=== PATIENT | male | born 1995 | race Caucasian/White ===

== ENCOUNTER 2023-02-10 14:40 | Emergency (ER) | payer OTHER, SELFPAY ==
[2023-02-10] VITALS (28 sets, daily range): BP systolic 168–207; BP diastolic 109–146; PULSE 87–104; RESP 18; TEMP 36.6; O2SAT 94–97; BMI 33.0
--- NOTE | 2023-02-10 14:59 | ED.CHESTPAIN ---
HPI - Chest Pain General Time Seen by Provider: 14:59 Date Seen: 02/10/23 Chief Complaint: Chest Pain Stated Complaint: Tightness in Chest Dizzy Numb Arms Time Seen by Provider: 02/10/23 14:41 Source: patient and RN notes reviewed Mode of arrival: ambulatory Limitations: no limitations History of Present Illness HPI narrative: Patient is a 27-year-old male who had an episode at work where he started feeling dizzy. He felt like his fingertips were numb and tingly. He felt a heaviness in his chest. He states his arms started to go numb. He felt like he was getting tunnel vision like he might pass out. This has subsided. It is reviewed with him that his blood pressure is certainly elevated. He is not been anywhere that he would have had his blood pressure checked recently. He does not have any headache, no visual changes outside of feeling like his vision was closing or getting tunnel vision. There is none of that now. He is not short of breath, no chest tightness now. No palpitations. Denies any illicit drug use. States he does smoke when he drinks but that is all. He does admit to drinking about 3 to 4 times a week and did drink last night. Had multiple drinks last night. Absolutely does not do anything like cocaine, methamphetamine. Has no chronic health history but has not been into a doctor. MD complaint: chest discomfort Timing of current episode: episodic and now resolved Prior episodes: No Related Data Previous Rx's Medication Instructions Recorded hydrochlorothiazide 12.5 mg capsule 12.5 mg PO DAILY #30 caps 02/10/23 lisinopril 10 mg tablet 10 mg PO DAILY #30 tabs 02/10/23 Allergies Allergy/AdvReac Type Severity Reaction Status Date / Time morphine Allergy Mild Verified 02/10/23 14:51 Review of Systems Status of ROS Reports: 10 or more systems reviewed and unremarkable except as noted in History and below PFSH PFSH Social History Smoking Status: Current some day smoker What tobacco products do you use: cigarettes Do you use any of these nicotine containing products: None Second hand tobacco smoke exposure: No How often do you have a drink containing alcohol: 2-3 times a week How many standard drinks containing alcohol do you have on a typical day: 3 or 4 How often do you have six or more drinks on one occasion: Never AUDIT-C Alcohol total score: 4 Non-prescribed substance use: marijuana (any form) Non-prescribed substance use details: smokes daily service: No Exam Const Vital Signs, click to edit/add: Vital Signs - 24 hr 02/10/23 14:45 02/10/23 15:05 02/10/23 14:57 Temperature 98 F Pulse Rate 92 Pulse Rate [Pulse Oximeter] 104 H Respiratory Rate 18 Blood Pressure Blood Pressure [Left Upper Arm] 200/139 H Pulse Oximetry 96 96 95 Oxygen Delivery Method Room Air 02/10/23 15:00 02/10/23 15:03 02/10/23 15:15 Temperature Pulse Rate 94 94 91 Pulse Rate [Pulse Oximeter] Respiratory Rate Blood Pressure 207/135 H Blood Pressure [Left Upper Arm] Pulse Oximetry 96 97 97 Oxygen Delivery Method 02/10/23 15:30 02/10/23 15:33 02/10/23 15:45 Temperature Pulse Rate 94 91 96 Pulse Rate [Pulse Oximeter] Respiratory Rate Blood Pressure 198/146 H Blood Pressure [Left Upper Arm] Pulse Oximetry 96 96 95 Oxygen Delivery Method 02/10/23 16:00 02/10/23 16:02 02/10/23 16:15 Temperature Pulse Rate 95 97 95 Pulse Rate [Pulse Oximeter] Respiratory Rate Blood Pressure 179/143 H Blood Pressure [Left Upper Arm] Pulse Oximetry 96 95 97 Oxygen Delivery Method 02/10/23 16:17 02/10/23 16:23 02/10/23 16:28 Temperature Pulse Rate 91 93 88 Pulse Rate [Pulse Oximeter] Respiratory Rate Blood Pressure 188/124 H 179/115 H 171/115 H Blood Pressure [Left Upper Arm] Pulse Oximetry 96 96 95 Oxygen Delivery Method 02/10/23 16:30 02/10/23 16:32 Temperature Pulse Rate 92 95 Pulse Rate [Pulse Oximeter] Respiratory Rate Blood Pressure 175/109 H Blood Pressure [Left Upper Arm] Pulse Oximetry 95 96 Oxygen Delivery Method Documenting provider has reviewed patient's vital signs: yes Common normals: no apparent distress, oriented x3, no limitations, healthy appearing, alert and well nourished General appearance: cooperative, comfortable, well kempt and well developed Nutritional appearance: obese HENMT Common normals: normocephalic, head/scalp atraumatic, hearing grossly normal bilaterally, external ears normal, external nose normal, nasal mucous membranes and turbinates normal and moist oral mucous membranes Head and scalp: normocephalic and atraumatic Nose: external nose normal and nasal mucous membranes and turbinates normal External ear: external ears normal Eye Common normals: PERRL, EOMs intact bilaterally, conjunctivae normal and no scleral icterus Conjunctiva: conjunctiva(e) normal Pupil: PERRL Neck & C-Spine Common normals: full ROM, no lymphadenopathy, supple, no meningeal signs, no JVD and thyroid normal Thyroid: thyroid normal Chest Common normals: inspection of chest normal and palpation of chest normal Resp Common normals: normal respiratory effort, no retractions, no use of accessory muscles and clear to auscultation bilaterally Auscultation: clear to auscultation bilaterally Cardio Common normals: no JVD, regular rhythm, S1 normal heart sound, S2 normal heart sound, no gallops, no clicks, no murmurs and no rub Rate: tachycardic Rhythm: regular rhythm Heart sounds: S1 normal and S2 normal GI Common normals: Normal to inspection, nondistended, normoactive bowel sounds present, soft to palpation, non-tender, no hepatosplenomegaly and no masses Palpation: soft and no hepatosplenomegaly Extremity Common normals: no calf tenderness and no pedal edema Neuro Na Coma Scale: document GCS findings Na coma scale eye opening: Spontaneous (4) Na coma scale verbal response: Orientated (5) Na coma scale motor response: Obey commands (6) [place] coma scale total score: 15 Common normals: oriented x3, CN's II-XII intact bilaterally, moves all extremities, no focal motor deficits, no sensory deficits noted and gait normal Sensorium/orientation: alert Meningeal signs: no meningeal signs Speech: speech normal Psych Appearance: well kempt Course Course Hospital Course: Patient will be on cardiac monitoring and pulse oximetry. Will observe him here for just a bit to see if his blood pressure comes down. May need to consider some blood pressure lowering medicine for him. He has no evidence of any altered mentation or neurologic changes at this time. The numbness tingling both of his hands at the same time really does seem indicative of hyperventilation and anxiety. Patient does admit that there was anxiety with it. However, his blood pressure is most certainly elevated. There could be underlying vascular or cardiac pathology that gave him symptoms ensuing anxiety. He will have appropriate labs, portable chest x-ray. It is very possible that this patient given his body habitus, smoking and alcohol use may very well have underlying hypertension. Have reviewed this with him. Have discussed that any weight loss can be helpful, limiting alcohol use can be helpful, low-sodium and heart healthy diet is recommended as well. Will be watched closely and will consider medication for blood pressure if it is deemed to be needed. Reevaluation(s) Reevaluation #1: Patient is feeling better. I did give him 5 mg IV labetalol and systolics or down into the 170s. This episode at work actually happened about 12 30-1 p.m.. Thus, can repeat a troponin at this time and if normal, can discharge to home. We spent some time talking about hypertension which he most definitely has. He wanted to know about diabetes. I recommend when he follows up in clinic that he return to that visit fasting, they can do a glucose, hemoglobin A1c and a lipid panel. I will write the recommendations down in his discharge. He is willing to go on medicines for his blood pressure. Reviewed with him that given the elevated blood pressure he has, do feel confident that we can initiate antihypertensives in him. My plan is to initiate lisinopril and a low-dose diuretic given his diastolic has been quite high too. Reviewed the risks and benefits of lisinopril, the need for follow-up kidney function monitoring after initiation. We did review his mildly elevated liver enzymes, do suspect underlying fatty liver. He states he was told that when he had his gallbladder out. He and I discussed that he should pick some areas to focus on in managing his lifestyle changes. I would suggest potentially working on weight loss and a low-sodium diet to start with. He notes diabetes does run in the family. Time: 16:42 Vital Signs Vital signs: Initial Vital Signs Temperature 98 F 02/10/23 14:45 Temperature Source Temporal Artery Scan 02/10/23 14:45 Pulse Rate 104 H 02/10/23 14:45 Pulse Rhythm Regular 02/10/23 14:45 Pulse Strength 3+ Normal 02/10/23 14:45 Respiratory Rate 18 02/10/23 14:45 Blood Pressure 200/139 H 02/10/23 14:45 Blood Pressure Mean 159 02/10/23 14:45 Blood Pressure Position Semi-Fowlers 02/10/23 14:45 Pulse Oximetry 96 02/10/23 14:45 Oxygen Delivery Method Room Air 02/10/23 14:45 Vital Signs Temperature 98 F 02/10/23 14:45 Pulse Rate 104 H 02/10/23 14:45 Respiratory Rate 18 02/10/23 14:45 Blood Pressure 200/139 H 02/10/23 14:45 Pulse Oximetry 96 02/10/23 14:45 Oxygen Delivery Method Room Air 02/10/23 14:45 Temperature 98 F 02/10/23 14:45 Pulse Rate 95 02/10/23 16:32 Respiratory Rate 18 02/10/23 14:45 Blood Pressure 175/109 H 02/10/23 16:32 Pulse Oximetry 96 02/10/23 16:32 Oxygen Delivery Method Room Air 02/10/23 14:45 MDM - Chest Pain Lab Data Attestation: I reviewed the patient's lab results. Labs: Lab Results 02/10/23 02/10/23 Range/Units 15:15 16:45 WBC 9.30 (4.50-11.00) K/uL RBC 5.55 (4.30-5.90) m/uL Hgb 16.5 (13.5-17.5) gm/dL Hct 46.1 (37.0-53.0) % MCV 83 (80-100) fL MCH 30 (26-34) pg MCHC 36 (32-36) gm/dL RDW Coeff of Ave 11.1 L (11.5-15.5) % Plt Count 185 (140-440) K/uL Neut % (Auto) 75.9 H (42.0-72.0) % Lymph % (Auto) 14.8 L (20-44) % [place] % (Auto) 8.1 (0.0-11.0) % Eos % (Auto) 0.6 (0.0-7.0) % Baso % (Auto) 0.3 (0.0-3.0) % Neut # (Auto) 7.10 H (1.7-7.0) K/uL Lymph # (Auto) 1.40 (0.90-2.90) K/uL [place] # (Auto) 0.80 (0.00-0.90) K/UL Eos # (Auto) 0.06 (0.00-0.50) K/uL Baso # (Auto) 0.03 (0.00-0.30) K/uL Sodium 135 (135-149) mmol/L Potassium 3.5 L (3.6-5.1) mmol/L Chloride 106 (96-114) mmol/L Carbon Dioxide 21 (20-32) mmol/L BUN 11 (5-24) mg/dL Creatinine 0.9 (0.5-1.5) mg/dL Estimated Creat Clear 138.10 Estimated GFR 119 ml/min Glucose 108 (60-115) mg/dL Calcium 9.0 (8.4-10.6) mg/dL Total Bilirubin 1.0 (0.1-1.5) mg/dL AST 54 H (12-35) U/L ALT 104 H (4-50) U/L Alkaline Phosphatase 80 (40-150) U/L NT-Pro-B Natriuret Pep 717 pg/mL Total Protein 8.1 (6.0-8.3) g/dL Albumin 4.7 (3.3-5.0) g/dL POC Troponin I 0.02 0.01 (0.01-0.04) ng/ml Imaging Data Chest x-ray: Attestation: I have reviewed the pertinent imaging results. Radiologist's impression: Patient: OLAMIDE MULLER Facility:?[facility] Patient ID:?[id number] Site Patient ID:?[id number]. Site :?[id number] Study:?XRay Chest PORTABLE-02/10/2023 3:45:36 PM Ordering Physician:?Brit Champion Final Report: INDICATION: Chest pain. TECHNIQUE: Chest 1 views. COMPARISON: None. FINDINGS: Cardiovascular and mediastinum: Cardiomediastinal silhouette is mildly enlarged. Lungs and pleural spaces: Lungs are clear. No sign of pleural effusion. No pneumothorax. Bones and soft tissues: No significant findings. IMPRESSION: No acute cardiopulmonary process identified. Dictated by Allen Flynn MD @ 02/10/2023 5:22:37 PM (Electronic Signature) ECG Data Attestation: I personally reviewed and interpreted this ECG as follows: (Sinus rhythm, 100 beats per minute. Voltage criteria for LVH. Flipped T-waves without ST segment changes in 1, aVL and V6. QT corrected 482 milliseconds.) ECG interpretation date: 02/10/23 ECG interpretation time: 15:22 Prior ECG tracings: not available for review Discharge Plan Discharge Clinical Impression: Chest tightness, Hypertension Patient Disposition: Home, Self-Care Condition: Improved Instructions: DASH Eating Plan (ED), Low-Sodium Diet (ED), Hypertension (ED) Additional Instructions: Start lisinopril and hydrochlorothiazide for blood pressure management. Highly encourage you to minimize sodium intake, try to lose weight via healthy eating and increased exercise. Recommend trying to minimize alcohol. Do need to schedule a clinic followup for recheck of your blood pressure and have labs drawn within the next couple of weeks. It is important that kidney functions certainly be rechecked as we are initiating you on lisinopril. Through time, if you are very successful at lifestyle management, it may be possible that you might be able to go off medicines for blood pressure. When you have your clinic follow-up appointment, do recommend fasting overnight so that they can check a fasting glucose and lipid panel. Activity Level: Activity as Tolerated Discharge Diet: Heart Healthy (2 gm sodium, low fat) Prescriptions: New lisinopril 10 mg tablet 10 mg PO DAILY Qty: 30 0RF hydrochlorothiazide 12.5 mg capsule 12.5 mg PO DAILY Qty: 30 0RF Stand Alone Forms: MadeClose Info Instructions
--- NOTE | 2023-02-10 15:06 | CRLHL7_ITS ---
For Patients: As a result of the Cures Act, medical imaging exams and procedure reports are released immediately into your electronic medical record. You may view this report before your referring provider. If you have questions, please contact your health care provider. INDICATION: Chest pain. TECHNIQUE: Chest 1 views. COMPARISON: None. FINDINGS: Cardiovascular and mediastinum: Cardiomediastinal silhouette is mildly enlarged. Lungs and pleural spaces: Lungs are clear. No sign of pleural effusion. No pneumothorax. Bones and soft tissues: No significant findings. IMPRESSION: No acute cardiopulmonary process identified. Dictated by Allen Flynn MD @ 02/10/2023 5:22:37 PM (Electronically Signed)
[2023-02-10 15:25] LABS: HCO3 VBG 23 mmol/L (21-28); PCO2 VBG 35 mmHG (40-50); pH VBG 7.419 (7.32-7.43)
[2023-02-10 15:26] LABS: Basophils Absolute Auto 0.03 K/uL (0.00-0.30); Basophils Percent Auto 0.3 % (0.0-3.0); Eosinophils Absolute Auto 0.06 K/uL (0.00-0.50); Eosinophils Percent Auto 0.6 % (0.0-7.0); Hematocrit 46.1 % (37.0-53.0); Hemoglobin* 16.5 gm/dL (13.5-17.5); Immature Granulocytes Abs Auto 0.03 K/uL (0.00-0.30); Immature Granulocytes Pct Auto 0.3 %; Lymphocytes Percent Auto 14.8 % (20-44); Mean Corpuscular HGB Conc 36 gm/dL (32-36); Mean Corpuscular Hemoglobin 30 pg (26-34); Mean Corpuscular Volume 83 fL (80-100); Monocytes Percent Auto 8.1 % (0.0-11.0); Neutrophils Percent Auto 75.9 % (42.0-72.0); Platelet Count* 185 K/uL (140-440); RDW Coefficient of Variation % 11.1 % (11.5-15.5); Red Blood Count 5.55 m/uL (4.30-5.90)
[2023-02-10 15:31] LABS: Slide Review Reflex No
[2023-02-10 15:32] LABS: Troponin, Point-of-Care* 0.02 ng/ml (0.01-0.04)
[2023-02-10 15:45] LABS: Albumin* 4.7 g/dL (3.3-5.0); Chloride* 106 mmol/L (96-114)
[2023-02-10 15:46] LABS: Potassium* 3.5 mmol/L (3.6-5.1); Sodium* 135 mmol/L (135-149)
[2023-02-10 15:48] LABS: Alkaline Phosphatase* 80 U/L (40-150); Aspartate Amino Transferase* 54 U/L (12-35); Blood Urea Nitrogen* 11 mg/dL (5-24); Carbon Dioxide* 21 mmol/L (20-32); Creatinine* 0.9 mg/dL (0.5-1.5); Estimated Glomerular Filt Rate 119 ml/min; Total Protein* 8.1 g/dL (6.0-8.3)
[2023-02-10 15:49] LABS: Alanine Aminotransferase* 104 U/L (4-50); Glucose* 108 mg/dL (60-115)
[2023-02-10 15:57] LABS: NT Pro B Type NatriureticPept* 717 pg/mL
[2023-02-10] MEDS: LABETALOL HCL 5 MG/ML inj IVP (16:04)
[2023-02-10 17:05] LABS: Troponin, Point-of-Care* 0.01 ng/ml (0.01-0.04)
== END 2023-02-10 17:56 | disposition home or self-care (01) ==
PROVIDERS: Emergency Provider Family Medicine
DX: R07.9 Chest pain, unspecified (principal); I10 Essential (primary) hypertension
CPT/HCPCS: 36415; 71045; 80053; 82803; 83880; 84484; 85025; 93005; 94761; 96374; 99284; 99285